=== PATIENT | female | born 1980 | race Caucasian/White ===

== ENCOUNTER 2016-10-26 13:48 | Emergency (ER) | payer OTHER ==
[2016-10-26 14:42] LABS: BILIRUBIN NEGATIVE (NEGATIVE); BLOOD 3+ Ery/uL (NEGATIVE); CLARITY CLEAR (CLEAR); COLOR YELLOW (YELLOW); GLUCOSE (U) 2+ mg/dL (NORMAL); KETONE (U) NEGATIVE (NEGATIVE); LEUKOCYTES NEGATIVE Leu/uL (NEGATIVE); NITRITE NEGATIVE (NEGATIVE); PROTEIN 1+ mg/dL (NEGATIVE); SPECIFIC GRAVITY >=1.030 (1.001-1.030); UROBILINOGEN 0.2 mg/dL (0.2-1.0)
[2016-10-26 14:50] LABS: MUCOUS TRACE
[2016-10-26 15:19] LABS: AMPHETAMINES NEGATIVE (NEGATIVE); BARBITURATES NEGATIVE (NEGATIVE); BENZODIAZEPINES NEGATIVE (NEGATIVE); COCAINE NEGATIVE (NEGATIVE); MARIJUANA (THC) NEGATIVE (NEGATIVE); METHADONE NEGATIVE (NEGATIVE); TRICYCLIC ANTIDEPRESSANT NEGATIVE (NEGATIVE)
[2016-10-26 15:50] LABS: BASOPHIL 0.5 % (0-2); EOSINOPHIL 0.1 % (0-5); HGB 12.7 g/dl (12.5-16.0); LYMPHOCYTE 13.4 % (15-48); MCH 31.7 pg (25.0-31.0); MCHC 35.3 g/dL (32.0-36.0); MCV 89.8 fL (78.0-100.0); MONOCYTE 6.4 % (0-12); MPV 9.9 fL (6.0-9.5); NEUTROPHIL 79.6 % (41-80); PLT 309 K/uL (150-400); RBC 4.01 M/uL (4.20-5.40); RDW 12.4 % (11.5-14.0); WBC 9.8 K/uL (4.0-10.5)
[2016-10-26 16:02] LABS: CREATININE 0.6 mg/dL (0.5-1.0); POTASSIUM 3.4 mmol/L (3.5-5.1)
== END 2016-10-26 17:03 | disposition home or self-care (01) ==
LOC: FER 13:48
PROVIDERS: Emergency Medicine; Nurse Practitioner Family
DX: N30.00 Acute cystitis without hematuria (principal); F32.9 Major depressive disorder, single episode, unspecified; F41.9 Anxiety disorder, unspecified; F17.210 Nicotine dependence, cigarettes, uncomplicated
CPT/HCPCS: 36415; 80048; 80305; 81001; 85025; J2175; J2405